=== PATIENT | male | born 1960 | race African-American/Black ===

== ENCOUNTER 2017-07-06 10:40 | Emergency (ER) | payer OTHER ==
[~2017-07-06] VITALS: Ht 182.9 cm; Wt 96.0 kg
[2017-07-06 10:44] VITALS: PULSE 71; RESP 16; TEMP 98.2; O2SAT 96
--- NOTE | 2017-07-06 10:56 | PD ---
HPI Chief Complaint: Head Injury Time Seen by Provider: 10:50 Travel History International Travel<30 days: No Contact w/Intl Traveler<30days: No Traveled to known affect area: No History of Present Illness HPI WHILE AT WORK, ACCIDENTALLY HIT HEAD (a beam like structure, i am unable to clearly visualize what the patient described), OVER ABOVE LEFT ANABAPTISM AREA, NO LOC, BUT FELT DIZZY, RATES PAIN 5/10. denies any visual changes, n/v/. does state that he has a a throbbing type of headache, 4/10, non rad, and seems to be bleeding over the left side of head. PFSH Past Medical History Medical History: Denies Significant Hx Tetanus Vaccination: Unknown Past Surgical History Surgical History: No Previous Surgery Social History Alcohol Use: Yes (OCC) Tobacco Use: No Substance Use: No Allergies-Medications (Allergen,Severity, Reaction): Coded Allergies: No Known Allergies (Unverified , 07/06/17) Reported Meds & Prescriptions Reported Meds & Active Scripts Active Zofran Odt (Ondansetron Odt) 4 Mg Tab 4 Mg SL Q6HR PRN Ultram (Tramadol HCl) 50 Mg Tab 50 Mg PO Q6H PRN Review of Systems Except as stated in HPI: all other systems reviewed are Neg General / Constitutional: No: Fever Eyes: No: Visual changes HENT: Positive: Headaches Cardiovascular: No: Chest Pain or Discomfort Respiratory: No: Shortness of Breath Gastrointestinal: No: Abdominal Pain Genitourinary: No: Dysuria Musculoskeletal: No: Pain Skin: No Rash Neurologic: No: Weakness Psychiatric: No: Depression Endocrine: No: Polydipsia Hematologic/Lymphatic: No: Easy Bruising Physical Exam Narrative GENERAL: SKIN: Warm and dry. HEAD: Normocephalic. SMALL 1.5CM LINEAR LAC OVER LEFT TEMPOROPARIETAL REGION, NO CREPITUS, NO STEPOFF, NO HEMOTYMPANUM EYES: Pupils equal and round. No scleral icterus. No injection or drainage. ENT: No nasal bleeding or discharge. Mucous membranes pink and moist. NECK: Trachea midline. No JVD. CARDIOVASCULAR: Regular rate and rhythm. RESPIRATORY: No accessory muscle use. Clear to auscultation. Breath sounds equal bilaterally. GASTROINTESTINAL: Abdomen soft, non-tender, nondistended. Hepatic and splenic margins not palpable. MUSCULOSKELETAL: Extremities without clubbing, cyanosis, or edema. No obvious deformities. NEUROLOGICAL: Awake and alert. No obvious cranial nerve deficits. Motor grossly within normal limits. Five out of 5 muscle strength in the arms and legs. Normal speech. PSYCHIATRIC: Appropriate mood and affect; insight and judgment normal. Data Data Last Documented VS Orders Orders Ct Brain W/O Iv Contrast(Rout) (07/06/17 10:50) Tramadol (Ultram) (07/06/17 11:00) Tetanus/Diphtheria Tox Adult (Tetanus/Di (07/06/17 11:00) Ed Discharge Order (07/06/17 13:02) MDM Medical Decision Making Medical Screen Exam Complete: Yes Emergency Medical Condition: Yes Medical Record Reviewed: Yes Differential Diagnosis ICH V SKULL FX V BASILAR SKULL FX V SCALP LAC V SCALP CONTUSION Narrative Course ct study neg for skull fx, ich or brain contusion Diagnosis Primary Impression: SCALP CONTUSION Additional Impression: SCALP LAC S/P DERMABOND Patient Instructions: General Instructions, Skin Adhesive Care (ED) Scripts Ondansetron Odt (Zofran Odt) 4 Mg Tab 4 MG SL Q6HR Y for Nausea/Vomiting, #10 TAB 0 Refills Prov: Leland Pastor MD 07/06/17 Tramadol (Ultram) 50 Mg Tab 50 MG PO Q6H Y for PAIN, #12 TAB 0 Refills Prov: Leland Pastor MD 07/06/17 Disposition: 01 DISCHARGE HOME Condition: Stable Leland Pastor MD Jul 06, 2017 10:56
[2017-07-06] MEDS ORDERED: traMADol HCL 50 MG TAB PO ONE (11:00)
[2017-07-06] MEDS ORDERED: TETANUS/DIPHTHERIA TOXOID ADULT 0.5 ML VIAL IM ONE (11:00)
--- NOTE | 2017-07-06 11:52 | RADRPT ---
EXAM DATE/TIME: 07/06/2017 11:24 [facility] COMPARISON: No previous studies available for comparison. INDICATIONS : Hit head at work, felt dizzy afterwards. RADIATION DOSE: 33.83 CTDIvol (mGy) MEDICAL HISTORY : None SURGICAL HISTORY : None. ENCOUNTER: Initial ACUITY: 1 day PAIN SCALE: 5/10 LOCATION: cranial TECHNIQUE: Multiple contiguous axial images were obtained of the head. Using automated exposure control and adj ustment of the mA and/or kV according to patient size, radiation dose was kept as low as reasonably a chievable to obtain optimal diagnostic quality images. DICOM format image data is available electro nically for review and comparison. FINDINGS: CEREBRUM: The ventricles are normal for age. No evidence of midline shift, mass lesion, hemorrhage or acute in farction. No extra-axial fluid collections are seen. POSTERIOR FOSSA: The cerebellum and brainstem are intact. The 4th ventricle is midline. The cerebellopontine angle i s unremarkable. Megacisterna magna, an anatomic variant. EXTRACRANIAL: The visualized portion of the orbits is intact. 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 SKULL: The calvaria is intact. No evidence of skull fracture. CONCLUSION: 1. 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 2. Otherwise negative. No acute intracranial process, trauma or fracture. Alin Araiza MD on July 06, 2017 at 11:49 Board Certified Radiologist. This report was verified electronically.
[2017-07-06] MEDS ORDERED: ULTR50TA5 PO (13:03)
[2017-07-06] MEDS ORDERED: ZOFR4TAB3 SL (13:03)
== END 2017-07-06 13:36 | disposition home or self-care (01) ==
LOC: NEPE 10:40
DX: S00.03XA Contusion of scalp, initial encounter (principal); S01.01XA Laceration without foreign body of scalp, initial encounter; W22.8XXA Striking against or struck by other objects, initial encounter; Y99.0 Civilian activity done for income or pay; Z23 Encounter for immunization
CPT/HCPCS: 70450; 90471; 90714